=== PATIENT | female | born 1990 | race Caucasian/White ===

== ENCOUNTER 2018-10-04 17:52 | Emergency (ER) | payer OTHER ==
[~2018-10-04] VITALS: Ht 157.5 cm; Wt 76.7 kg
[2018-10-04 17:52] VITALS: BP 130/81
[2018-10-04] MEDS ORDERED: IBUPROFEN 600 MG TAB PO ONE (18:30)
[2018-10-04] MEDS ORDERED: IBUP-1022 PO (18:46)
--- NOTE | 2018-10-04 18:57 | REP ---
HISTORY: Trauma. COMPARISON: None. FINDINGS: No acute fracture or destructive osseous lesion. The mortise is intact. Electronically Signed by Guerrero Petersen DO 10/04/2018 07:08 P
== END 2018-10-04 19:01 | disposition home or self-care (01) ==
LOC: M ED 17:52
DX: S93.402A Sprain of unspecified ligament of left ankle, initial encounter (principal); X50.9XXA Other and unspecified overexertion or strenuous movements or postures, initial encounter; Y92.89 Other specified places as the place of occurrence of the external cause; J45.909 Unspecified asthma, uncomplicated

== ENCOUNTER 2019-10-05 16:30 | Emergency (ER) | payer OTHER, SELFPAY ==
[~2019-10-05] VITALS: Ht 160 cm; Wt 79.8 kg
[2019-10-05 16:30] VITALS: BP 137/84
[~2019-10-05 16:30] MED LIST: IBUP-1022 PO
== END 2019-10-05 17:28 | disposition home or self-care (01) ==
LOC: M ED 16:30
DX: S30.0XXA Contusion of lower back and pelvis, initial encounter (principal); W19.XXXA Unspecified fall, initial encounter; Y92.89 Other specified places as the place of occurrence of the external cause; Y93.9 Activity, unspecified; Y99.9 Unspecified external cause status; Z91.81 History of falling